=== PATIENT | male | born 1945 | race Caucasian/White ===

== ENCOUNTER 2024-02-29 09:46 | Day surgery (SDC) | payer OTHER ==
[2024-02-27 15:16] VITALS: BMI 29.2
[2024-02-29] MEDS ORDERED: ALBUTEROL SO4 HFA INHALER IH ONE (10:27)
[2024-02-29 11:34] VITALS: TEMP 97.8
[2024-02-29 11:37] VITALS: BP 129/62; PULSE 70; RESP 19
== END 2024-02-29 11:30 | disposition home or self-care (01) ==
LOC: FASU-ENDO 09:46
PROVIDERS: ATTEND Internal Medicine Gastroenterology
PROC: 0D748DZ Dilation of Esophagogastric Junction with Intraluminal Device, Via Natural or Artificial Opening Endoscopic (ICD-10-PCS; 2024-02-29)
PROC: 0D718DZ Dilation of Upper Esophagus with Intraluminal Device, Via Natural or Artificial Opening Endoscopic (ICD-10-PCS; 2024-02-29)
PROC: 0D728DZ Dilation of Middle Esophagus with Intraluminal Device, Via Natural or Artificial Opening Endoscopic (ICD-10-PCS; 2024-02-29)
PROC: 0D738DZ Dilation of Lower Esophagus with Intraluminal Device, Via Natural or Artificial Opening Endoscopic (ICD-10-PCS; 2024-02-29)
PROC: 0DB68ZX Excision of Stomach, Via Natural or Artificial Opening Endoscopic, Diagnostic (ICD-10-PCS; principal; 2024-02-29 10:39)
DX: K29.50 Unspecified chronic gastritis without bleeding (principal); B96.81 Helicobacter pylori [H. pylori] as the cause of diseases classified elsewhere
CPT/HCPCS: 88305-TC; 88342-TC